=== PATIENT | male | born 1960 | race African-American/Black ===

== ENCOUNTER 2023-01-20 14:16 | Inpatient (IN) | payer OTHER ==
[2023-01-20 17:00] VITALS: BMI 21.9
[2023-01-20] MEDS ORDERED: NALOXONE HCL 0.4 MG/ML VIAL IM PRN (18:35)
[2023-01-20] MEDS ORDERED: BENZOCAINE/MENTHOL (CHLORASEPTIC ) LOZENGE MM PRN (18:35)
[2023-01-20] MEDS ORDERED: LOPERAMIDE HCL 2 MG CAPSULE PO PRN (18:35)
[2023-01-20] MEDS ORDERED: BISMUTH SUBSALICYLATE 524 MG/30 ML PO PRN (18:35)
[2023-01-20] MEDS ORDERED: hydrOXYzine PAMOATE 25 MG CAPSULE (FP) PO PRN (18:35)
[2023-01-20] MEDS ORDERED: LORazepam 1 MG TABLET PO PRN (18:35)
[2023-01-20] MEDS ORDERED: POLYETHYLENE GLYCOL (HEALTHYLAX) 3350 17 GM PACKET PO PRN (18:35)
[2023-01-20] MEDS ORDERED: NALOXONE HCL (KLOXXADO) 8 MG SPRAY NS PRN (18:35)
[2023-01-20] MEDS ORDERED: guaiFENesin 600 MG TABLET.ER (FP) PO PRN (18:35)
[2023-01-20] MEDS ORDERED: IBUPROFEN 600 MG TABLET (FP) PO PRN (18:35)
[2023-01-20] MEDS ORDERED: MAGNESIUM HYDROX 2400MG/30ML ORAL SUSPENSION 30 ML CUP PO PRN (18:35)
[2023-01-20] MEDS ORDERED: BENZONATATE 200 MG CAPSULE PO PRN (18:35)
[2023-01-20] MEDS ORDERED: IBUPROFEN 400 MG TABLET (FP) PO PRN (18:35)
[2023-01-20] MEDS ORDERED: DICYCLOMINE HCL 10 MG CAPSULE PO PRN (18:35)
[2023-01-20] MEDS ORDERED: ACETAMINOPHEN 325 MG TABLET (FP) PO PRN (18:35)
[2023-01-20] MEDS ORDERED: ONDANSETRON *ODT* 4 MG TABLET SL PRN (18:35)
[2023-01-20] MEDS ORDERED: MAG HYDROX/AL HYDROX/SIMETH 30 ML UNIT-DOSE CUP PO PRN (18:35)
[2023-01-20] MEDS: LORazepam 2 MG TABLET PO SCH (22:18)
[2023-01-20] MEDS: MELATONIN 5 MG TABLETS PO SCH (22:18)
[2023-01-20] MEDS: THIAMINE HCL 100 MG TABLET (FP) PO SCH (22:18)
[2023-01-20] MEDS: PRENATAL VITAMINS W/ FOLIC ACID TABLET (FP) PO SCH (22:19)
[2023-01-21] MEDS: LORazepam 2 MG TABLET PO SCH ×4 (05:49→22:34)
[2023-01-21] MEDS: PRENATAL VITAMINS W/ FOLIC ACID TABLET (FP) PO SCH (10:03)
[2023-01-21 10:55] LABS: CHLORIDE 108 mmol/L (98-107); POTASSIUM 3.8 mmol/L (3.5-5.1); SODIUM 140 mmol/L (136-145)
[2023-01-21 11:14] LABS: CALCIUM 8.5 mg/dL (8.5-10.1)
[2023-01-21 11:15] LABS: ALBUMIN 2.8 g/dl (3.4-5.0); ANION GAP 7 mmol/L (4-13); BLOOD UREA NITROGEN 16.2 mg/dL (7-18); CO2 25 mmol/L (21-32); GLUCOSE,RANDOM 105 mg/dL (74-106)
[2023-01-21 11:18] LABS: SGOT/AST 47 U/L (15-37); SGPT/ALT 68 U/L (13-61)
[2023-01-21 11:20] LABS: TOT PROT 5.8 g/dl (6.4-8.2)
[2023-01-21 11:21] LABS: ALK PHOS 90 U/L (45-117)
[2023-01-21] MEDS: LACTULOSE 20 GM/30 ML UDC (FOR ORAL USE ONLY) PO SCH ×2 (14:35→22:35)
[2023-01-21] MEDS: MELATONIN 5 MG TABLETS PO SCH (22:34)
[2023-01-21] MEDS: THIAMINE HCL 100 MG TABLET (FP) PO SCH (22:34)
[2023-01-22] MEDS: LORazepam 1 MG TABLET PO SCH ×4 (05:30→22:12)
[2023-01-22] MEDS: LACTULOSE 20 GM/30 ML UDC (FOR ORAL USE ONLY) PO SCH ×3 (05:30→22:12)
[2023-01-22] MEDS: PRENATAL VITAMINS W/ FOLIC ACID TABLET (FP) PO SCH (10:06)
[2023-01-22 10:33] LABS: HEMATOCRIT 40.3 % (35.4-49); MCH 28.9 pg (25.7-33.7); MCHC 32.2 g/dl (32.0-35.9); MEAN CELL VOLUME 89.7 fl (80-96); MEAN PLT VOLUME 10.3 fl (7.5-11.1); PLATELET COUNT 145 10^3/uL (134-434); RDW 14.2 % (11.9-15.9); WHITE BLOOD COUNT 4.3 K/mm3 (4.0-10.0)
[2023-01-22] MEDS: METHOCARBAMOL 500 MG TABLET PO PRN (17:10)
[2023-01-22] MEDS: NICOTINE POLACRILEX 2 MG GUM BUC PRN ×2 (18:47→21:20)
[2023-01-22] MEDS: MELATONIN 5 MG TABLETS PO SCH (22:12)
[2023-01-22] MEDS: THIAMINE HCL 100 MG TABLET (FP) PO SCH (22:12)
[2023-01-23] MEDS ORDERED: LORazepam 0.5 MG TABLET PO PRN
[2023-01-23] MEDS: LORazepam 0.5 MG TABLET PO SCH ×4 (05:07→22:06)
[2023-01-23] MEDS: LACTULOSE 20 GM/30 ML UDC (FOR ORAL USE ONLY) PO SCH ×3 (06:08→22:03)
[2023-01-23] MEDS: NICOTINE POLACRILEX 2 MG GUM BUC PRN ×5 (06:12→22:25)
[2023-01-23] MEDS: PRENATAL VITAMINS W/ FOLIC ACID TABLET (FP) PO SCH (10:29)
[2023-01-23] MEDS ORDERED: LISINOPRIL 5 MG TABLET PO SCH (11:30)
[2023-01-23] MEDS ORDERED: LISINOPRIL 5 MG TABLET PO ONE (14:00)
[2023-01-23] MEDS: THIAMINE HCL 100 MG TABLET (FP) PO SCH (22:03)
[2023-01-23] MEDS: MELATONIN 5 MG TABLETS PO SCH (22:03)
[2023-01-23] MEDS: METHOCARBAMOL 500 MG TABLET PO PRN (22:03)
[2023-01-24] MEDS ORDERED: LORazepam 0.5 MG TABLET PO ONE (05:00)
[2023-01-24] MEDS: LACTULOSE 20 GM/30 ML UDC (FOR ORAL USE ONLY) PO SCH ×2 (06:25→13:47)
[2023-01-24] MEDS: NICOTINE POLACRILEX 2 MG GUM BUC PRN ×2 (06:27→10:26)
[2023-01-24 07:37] VITALS: BP 159/100; PULSE 66; RESP 18; TEMP 97
[2023-01-24] MEDS: PRENATAL VITAMINS W/ FOLIC ACID TABLET (FP) PO SCH (09:41)
[2023-01-24] MEDS ORDERED: LISINOPRIL 10 MG TABLET PO SCH (10:00)
== END 2023-01-24 11:58 | disposition other institution (70) | DRG 774 ==
LOC: YASAS 14:16 → Y6N 20:32
PROVIDERS: ADMIT Allergy & Immunology; ATTEND Surgery
PROC: HZ2ZZZZ Detoxification Services for Substance Abuse Treatment (ICD-10-PCS; principal; 2023-01-20)
DX: F10.230 Alcohol dependence with withdrawal, uncomplicated (principal); F14.20 Cocaine dependence, uncomplicated; F17.210 Nicotine dependence, cigarettes, uncomplicated; I10 Essential (primary) hypertension; E72.20 Disorder of urea cycle metabolism, unspecified; B18.1 Chronic viral hepatitis B without delta-agent
CPT/HCPCS: 36415; 71046-TC-FY; 80053; 80307; 82140; 85027; 86780; 87635; 93005; 93010

== ENCOUNTER 2023-01-24 12:00 | Inpatient (IN) | payer OTHER ==
[2023-01-24] MEDS ORDERED: FLU VACCINE (FLULAVAL) PF 60 MCG/0.5 ML SYRINGE 2023-2024 IM ONE (12:16)
[2023-01-24] MEDS ORDERED: PNEUMOC 20-VAL CONJ-DIP CRM/PF 0.5 ML SYRINGE IM ONE (12:16)
[2023-01-24] MEDS ORDERED: IBUPROFEN 400 MG TABLET (FP) PO PRN (12:46)
[2023-01-24] MEDS ORDERED: ACETAMINOPHEN 325 MG TABLET (FP) PO PRN (12:46)
[2023-01-24] MEDS ORDERED: NALOXONE HCL 0.4 MG/ML VIAL IVPUSH PRN (12:46)
[2023-01-24] MEDS ORDERED: NALOXONE HCL (KLOXXADO) 8 MG SPRAY NS PRN (12:46)
[2023-01-24] MEDS ORDERED: IBUPROFEN 600 MG TABLET (FP) PO PRN (12:46)
[2023-01-24] MEDS ORDERED: BENZONATATE 200 MG CAPSULE PO PRN (12:46)
[2023-01-24] MEDS ORDERED: NICOTINE 14 MG/24 HOURS TOPICAL PATCH TD PRN (12:46)
[2023-01-24] MEDS ORDERED: LOPERAMIDE HCL 2 MG CAPSULE PO PRN (12:46)
[2023-01-24] MEDS ORDERED: COLLOIDAL OATMEAL 1 BAR EACH TP PRN (12:46)
[2023-01-24] MEDS ORDERED: AMMONIUM LACTATE 12% LOTION 225 GM BOTTLE TP PRN (12:46)
[2023-01-24] MEDS ORDERED: BENZOCAINE/MENTHOL (CHLORASEPTIC ) LOZENGE MM PRN (12:46)
[2023-01-24] MEDS ORDERED: guaiFENesin 600 MG TABLET.ER (FP) PO PRN (12:46)
[2023-01-24] MEDS ORDERED: BACLOFEN 10 MG TABLET (FP) PO PRN (12:46)
[2023-01-24] MEDS ORDERED: MAGNESIUM HYDROX 2400MG/30ML ORAL SUSPENSION 30 ML CUP PO PRN (12:46)
[2023-01-24] MEDS ORDERED: POLYETHYLENE GLYCOL (HEALTHYLAX) 3350 17 GM PACKET PO PRN (12:46)
[2023-01-24] MEDS ORDERED: MAG HYDROX/AL HYDROX/SIMETH 30 ML UNIT-DOSE CUP PO PRN (12:46)
[2023-01-24] MEDS: LACTULOSE 20 GM/30 ML UDC (FOR ORAL USE ONLY) PO SCH ×2 (13:49→21:04)
[2023-01-24] MEDS ORDERED: PNEUMOCOCCAL 23 VACCINE 0.5 ML VIAL IM ONE (14:04)
[2023-01-24] MEDS: NICOTINE POLACRILEX 4 MG GUM BUC PRN ×2 (16:02→21:05)
[2023-01-24] MEDS: THIAMINE HCL 100 MG TABLET (FP) PO SCH (21:04)
[2023-01-24] MEDS: MELATONIN 5 MG TABLETS PO SCH (21:04)
[2023-01-25] MEDS: LACTULOSE 20 GM/30 ML UDC (FOR ORAL USE ONLY) PO SCH ×3 (06:26→21:21)
[2023-01-25] MEDS: hydrOXYzine PAMOATE 25 MG CAPSULE (FP) PO PRN ×2 (06:26→21:21)
[2023-01-25] MEDS: NICOTINE POLACRILEX 4 MG GUM BUC PRN ×4 (06:28→21:21)
[2023-01-25] MEDS ORDERED: LISINOPRIL 10 MG TABLET PO SCH (10:00)
[2023-01-25] MEDS: PRENATAL VITAMINS W/ FOLIC ACID TABLET (FP) PO SCH (10:14)
[2023-01-25 16:29] LABS: HIV INTERPRETATION NEGATIVE (NEGATIVE)
[2023-01-25] MEDS: THIAMINE HCL 100 MG TABLET (FP) PO SCH (21:20)
[2023-01-25] MEDS: MELATONIN 5 MG TABLETS PO SCH (21:21)
[2023-01-26] MEDS: LACTULOSE 20 GM/30 ML UDC (FOR ORAL USE ONLY) PO SCH ×3 (06:14→21:03)
[2023-01-26] MEDS: NICOTINE POLACRILEX 4 MG GUM BUC PRN ×4 (06:15→21:04)
[2023-01-26] MEDS: PRENATAL VITAMINS W/ FOLIC ACID TABLET (FP) PO SCH (09:52)
[2023-01-26] MEDS ORDERED: amLODIPine BESYLATE 5 MG TABLET (FP) PO SCH (10:00)
[2023-01-26] MEDS ORDERED: amLODIPine BESYLATE 5 MG TABLET (FP) PO ONE (12:36)
[2023-01-26] MEDS: THIAMINE HCL 100 MG TABLET (FP) PO SCH (21:03)
[2023-01-26] MEDS: MELATONIN 5 MG TABLETS PO SCH (21:03)
[2023-01-26] MEDS: hydrOXYzine PAMOATE 25 MG CAPSULE (FP) PO PRN (21:03)
[2023-01-27] MEDS: LACTULOSE 20 GM/30 ML UDC (FOR ORAL USE ONLY) PO SCH ×3 (06:22→21:03)
[2023-01-27] MEDS: NICOTINE POLACRILEX 4 MG GUM BUC PRN ×6 (06:23→23:09)
[2023-01-27] MEDS: hydrOXYzine PAMOATE 25 MG CAPSULE (FP) PO PRN ×2 (06:23→21:05)
[2023-01-27] MEDS: LISINOPRIL 5 MG TABLET PO SCH (09:54)
[2023-01-27] MEDS: PRENATAL VITAMINS W/ FOLIC ACID TABLET (FP) PO SCH (09:54)
[2023-01-27] MEDS: amLODIPine BESYLATE 10 MG TABLET (FP) PO SCH (09:54)
[2023-01-27] MEDS: MELATONIN 5 MG TABLETS PO SCH (21:03)
[2023-01-27] MEDS: THIAMINE HCL 100 MG TABLET (FP) PO SCH (21:03)
[2023-01-28] MEDS: LACTULOSE 20 GM/30 ML UDC (FOR ORAL USE ONLY) PO SCH ×3 (06:00→21:19)
[2023-01-28] MEDS: hydrOXYzine PAMOATE 25 MG CAPSULE (FP) PO PRN ×2 (06:00→21:20)
[2023-01-28] MEDS: NICOTINE POLACRILEX 4 MG GUM BUC PRN ×4 (06:01→16:39)
[2023-01-28] MEDS: LISINOPRIL 5 MG TABLET PO SCH (10:13)
[2023-01-28] MEDS: PRENATAL VITAMINS W/ FOLIC ACID TABLET (FP) PO SCH (10:13)
[2023-01-28] MEDS: amLODIPine BESYLATE 10 MG TABLET (FP) PO SCH (10:13)
[2023-01-28] MEDS: MELATONIN 5 MG TABLETS PO SCH (21:18)
[2023-01-28] MEDS: THIAMINE HCL 100 MG TABLET (FP) PO SCH (21:19)
[2023-01-29] MEDS: LACTULOSE 20 GM/30 ML UDC (FOR ORAL USE ONLY) PO SCH ×3 (06:20→21:24)
[2023-01-29] MEDS: NICOTINE POLACRILEX 4 MG GUM BUC PRN ×5 (06:20→21:25)
[2023-01-29] MEDS: PRENATAL VITAMINS W/ FOLIC ACID TABLET (FP) PO SCH (10:25)
[2023-01-29] MEDS: LISINOPRIL 5 MG TABLET PO SCH (10:25)
[2023-01-29] MEDS: amLODIPine BESYLATE 10 MG TABLET (FP) PO SCH (10:25)
[2023-01-29] MEDS: hydrOXYzine PAMOATE 25 MG CAPSULE (FP) PO PRN (21:24)
[2023-01-29] MEDS: THIAMINE HCL 100 MG TABLET (FP) PO SCH (21:24)
[2023-01-29] MEDS: MELATONIN 5 MG TABLETS PO SCH (21:24)
[2023-01-30] MEDS: LACTULOSE 20 GM/30 ML UDC (FOR ORAL USE ONLY) PO SCH ×3 (06:04→21:08)
[2023-01-30] MEDS: hydrOXYzine PAMOATE 25 MG CAPSULE (FP) PO PRN ×2 (06:05→21:08)
[2023-01-30] MEDS: NICOTINE POLACRILEX 4 MG GUM BUC PRN ×4 (08:34→21:08)
[2023-01-30] MEDS: PRENATAL VITAMINS W/ FOLIC ACID TABLET (FP) PO SCH (09:32)
[2023-01-30] MEDS: LISINOPRIL 5 MG TABLET PO SCH (09:32)
[2023-01-30] MEDS: amLODIPine BESYLATE 10 MG TABLET (FP) PO SCH (09:33)
[2023-01-30] MEDS: MELATONIN 5 MG TABLETS PO SCH (21:08)
[2023-01-30] MEDS: THIAMINE HCL 100 MG TABLET (FP) PO SCH (21:08)
[2023-01-31] MEDS: LACTULOSE 20 GM/30 ML UDC (FOR ORAL USE ONLY) PO SCH ×3 (06:19→21:07)
[2023-01-31] MEDS: NICOTINE POLACRILEX 4 MG GUM BUC PRN ×5 (06:20→20:11)
[2023-01-31] MEDS: PRENATAL VITAMINS W/ FOLIC ACID TABLET (FP) PO SCH (10:00)
[2023-01-31] MEDS: LISINOPRIL 5 MG TABLET PO SCH (10:00)
[2023-01-31] MEDS: amLODIPine BESYLATE 10 MG TABLET (FP) PO SCH (10:00)
[2023-01-31] MEDS: MELATONIN 5 MG TABLETS PO SCH (21:07)
[2023-01-31] MEDS: THIAMINE HCL 100 MG TABLET (FP) PO SCH (21:08)
[2023-02-01] MEDS: LACTULOSE 20 GM/30 ML UDC (FOR ORAL USE ONLY) PO SCH ×2 (06:22→13:38)
[2023-02-01] MEDS: NICOTINE POLACRILEX 4 MG GUM BUC PRN ×3 (06:22→15:48)
[2023-02-01] MEDS: PRENATAL VITAMINS W/ FOLIC ACID TABLET (FP) PO SCH (09:39)
[2023-02-01] MEDS: LISINOPRIL 5 MG TABLET PO SCH (09:39)
[2023-02-01] MEDS: amLODIPine BESYLATE 10 MG TABLET (FP) PO SCH (09:39)
[2023-02-01] MEDS: MELATONIN 5 MG TABLETS PO SCH (21:10)
[2023-02-01] MEDS: THIAMINE HCL 100 MG TABLET (FP) PO SCH (21:10)
[2023-02-01] MEDS: hydrOXYzine PAMOATE 25 MG CAPSULE (FP) PO PRN (21:11)
[2023-02-02] MEDS: NICOTINE POLACRILEX 4 MG GUM BUC PRN ×4 (06:37→19:40)
[2023-02-02] MEDS: LISINOPRIL 5 MG TABLET PO SCH (10:24)
[2023-02-02] MEDS: PRENATAL VITAMINS W/ FOLIC ACID TABLET (FP) PO SCH (10:24)
[2023-02-02] MEDS: amLODIPine BESYLATE 10 MG TABLET (FP) PO SCH (10:24)
[2023-02-02] MEDS: MELATONIN 5 MG TABLETS PO SCH (21:02)
[2023-02-02] MEDS: hydrOXYzine PAMOATE 25 MG CAPSULE (FP) PO PRN (21:02)
[2023-02-02] MEDS: THIAMINE HCL 100 MG TABLET (FP) PO SCH (21:02)
[2023-02-03] MEDS: NICOTINE POLACRILEX 4 MG GUM BUC PRN ×4 (06:17→21:27)
[2023-02-03] MEDS: amLODIPine BESYLATE 10 MG TABLET (FP) PO SCH (09:52)
[2023-02-03] MEDS: LISINOPRIL 5 MG TABLET PO SCH (09:52)
[2023-02-03] MEDS: PRENATAL VITAMINS W/ FOLIC ACID TABLET (FP) PO SCH (09:52)
[2023-02-03] MEDS: THIAMINE HCL 100 MG TABLET (FP) PO SCH (21:27)
[2023-02-03] MEDS: hydrOXYzine PAMOATE 25 MG CAPSULE (FP) PO PRN (21:27)
[2023-02-03] MEDS: MELATONIN 5 MG TABLETS PO SCH (21:27)
[2023-02-04] MEDS: amLODIPine BESYLATE 10 MG TABLET (FP) PO SCH (10:02)
[2023-02-04] MEDS: LISINOPRIL 5 MG TABLET PO SCH (10:02)
[2023-02-04] MEDS: PRENATAL VITAMINS W/ FOLIC ACID TABLET (FP) PO SCH (10:02)
[2023-02-04] MEDS: NICOTINE POLACRILEX 4 MG GUM BUC PRN ×4 (10:03→19:42)
[2023-02-04] MEDS: MELATONIN 5 MG TABLETS PO SCH (21:04)
[2023-02-04] MEDS: THIAMINE HCL 100 MG TABLET (FP) PO SCH (21:04)
[2023-02-04] MEDS: hydrOXYzine PAMOATE 25 MG CAPSULE (FP) PO PRN (21:04)
[2023-02-05] MEDS: NICOTINE POLACRILEX 4 MG GUM BUC PRN ×5 (06:29→22:42)
[2023-02-05] MEDS: amLODIPine BESYLATE 10 MG TABLET (FP) PO SCH (09:52)
[2023-02-05] MEDS: PRENATAL VITAMINS W/ FOLIC ACID TABLET (FP) PO SCH (09:52)
[2023-02-05] MEDS: LISINOPRIL 5 MG TABLET PO SCH (09:52)
[2023-02-05] MEDS: hydrOXYzine PAMOATE 25 MG CAPSULE (FP) PO PRN (21:40)
[2023-02-05] MEDS: MELATONIN 5 MG TABLETS PO SCH (21:41)
[2023-02-05] MEDS: THIAMINE HCL 100 MG TABLET (FP) PO SCH (21:41)
[2023-02-06] MEDS: NICOTINE POLACRILEX 4 MG GUM BUC PRN ×5 (06:45→21:58)
[2023-02-06] MEDS: PRENATAL VITAMINS W/ FOLIC ACID TABLET (FP) PO SCH (09:52)
[2023-02-06] MEDS: amLODIPine BESYLATE 10 MG TABLET (FP) PO SCH (09:53)
[2023-02-06] MEDS: LISINOPRIL 5 MG TABLET PO SCH (09:53)
[2023-02-06] MEDS: hydrOXYzine PAMOATE 25 MG CAPSULE (FP) PO PRN (21:26)
[2023-02-06] MEDS: THIAMINE HCL 100 MG TABLET (FP) PO SCH (21:26)
[2023-02-06] MEDS: MELATONIN 5 MG TABLETS PO SCH (21:26)
[2023-02-07] MEDS: NICOTINE POLACRILEX 4 MG GUM BUC PRN ×4 (08:38→21:22)
[2023-02-07] MEDS: PRENATAL VITAMINS W/ FOLIC ACID TABLET (FP) PO SCH (09:53)
[2023-02-07] MEDS: LISINOPRIL 5 MG TABLET PO SCH (09:54)
[2023-02-07] MEDS: amLODIPine BESYLATE 10 MG TABLET (FP) PO SCH (09:54)
[2023-02-07] MEDS: hydrOXYzine PAMOATE 25 MG CAPSULE (FP) PO PRN (21:22)
[2023-02-07] MEDS: THIAMINE HCL 100 MG TABLET (FP) PO SCH (21:22)
[2023-02-07] MEDS: MELATONIN 5 MG TABLETS PO SCH (21:22)
[2023-02-08] MEDS: NICOTINE POLACRILEX 4 MG GUM BUC PRN ×3 (10:09→21:03)
[2023-02-08] MEDS: PRENATAL VITAMINS W/ FOLIC ACID TABLET (FP) PO SCH (10:09)
[2023-02-08] MEDS: amLODIPine BESYLATE 10 MG TABLET (FP) PO SCH (10:09)
[2023-02-08] MEDS: LISINOPRIL 5 MG TABLET PO SCH (10:09)
[2023-02-08] MEDS: MELATONIN 5 MG TABLETS PO SCH (21:02)
[2023-02-08] MEDS: hydrOXYzine PAMOATE 25 MG CAPSULE (FP) PO PRN (21:02)
[2023-02-08] MEDS: THIAMINE HCL 100 MG TABLET (FP) PO SCH (21:02)
[2023-02-09] MEDS: LISINOPRIL 5 MG TABLET PO SCH (10:36)
[2023-02-09] MEDS: PRENATAL VITAMINS W/ FOLIC ACID TABLET (FP) PO SCH (10:36)
[2023-02-09] MEDS: amLODIPine BESYLATE 10 MG TABLET (FP) PO SCH (10:36)
[2023-02-09] MEDS: NICOTINE POLACRILEX 4 MG GUM BUC PRN ×2 (10:37→15:37)
[2023-02-09] MEDS: THIAMINE HCL 100 MG TABLET (FP) PO SCH (21:26)
[2023-02-09] MEDS: MELATONIN 5 MG TABLETS PO SCH (21:26)
[2023-02-09] MEDS: hydrOXYzine PAMOATE 25 MG CAPSULE (FP) PO PRN (21:26)
[2023-02-10] MEDS: NICOTINE POLACRILEX 4 MG GUM BUC PRN ×3 (06:18→16:20)
[2023-02-10] MEDS: PRENATAL VITAMINS W/ FOLIC ACID TABLET (FP) PO SCH (09:51)
[2023-02-10] MEDS: amLODIPine BESYLATE 10 MG TABLET (FP) PO SCH (09:52)
[2023-02-10] MEDS: LISINOPRIL 5 MG TABLET PO SCH (09:52)
[2023-02-10] MEDS: hydrOXYzine PAMOATE 25 MG CAPSULE (FP) PO PRN (21:03)
[2023-02-10] MEDS: MELATONIN 5 MG TABLETS PO SCH (21:03)
[2023-02-10] MEDS: THIAMINE HCL 100 MG TABLET (FP) PO SCH (21:03)
[2023-02-11] MEDS: amLODIPine BESYLATE 10 MG TABLET (FP) PO SCH (09:56)
[2023-02-11] MEDS: LISINOPRIL 5 MG TABLET PO SCH (09:56)
[2023-02-11] MEDS: PRENATAL VITAMINS W/ FOLIC ACID TABLET (FP) PO SCH (09:56)
[2023-02-11] MEDS: TOLNAFTATE 1% CREAM 15 GM TUBE TP SCH ×2 (09:58→21:31)
[2023-02-11] MEDS: POVIDONE-IODINE 10% SOLN 118 ML BOTTLE TP SCH (10:24)
[2023-02-11] MEDS: NICOTINE POLACRILEX 4 MG GUM BUC PRN ×2 (16:32→21:31)
[2023-02-11] MEDS: MELATONIN 5 MG TABLETS PO SCH (21:29)
[2023-02-11] MEDS: THIAMINE HCL 100 MG TABLET (FP) PO SCH (21:29)
[2023-02-11] MEDS: hydrOXYzine PAMOATE 25 MG CAPSULE (FP) PO PRN (21:29)
[2023-02-12] MEDS: TOLNAFTATE 1% CREAM 15 GM TUBE TP SCH ×2 (10:11→21:27)
[2023-02-12] MEDS: POVIDONE-IODINE 10% SOLN 118 ML BOTTLE TP SCH (10:12)
[2023-02-12] MEDS: LISINOPRIL 5 MG TABLET PO SCH (10:12)
[2023-02-12] MEDS: amLODIPine BESYLATE 10 MG TABLET (FP) PO SCH (10:12)
[2023-02-12] MEDS: PRENATAL VITAMINS W/ FOLIC ACID TABLET (FP) PO SCH (10:12)
[2023-02-12] MEDS: NICOTINE POLACRILEX 4 MG GUM BUC PRN ×2 (10:14→19:55)
[2023-02-12] MEDS: hydrOXYzine PAMOATE 25 MG CAPSULE (FP) PO PRN (21:26)
[2023-02-12] MEDS: MELATONIN 5 MG TABLETS PO SCH (21:26)
[2023-02-12] MEDS: THIAMINE HCL 100 MG TABLET (FP) PO SCH (21:26)
[2023-02-13] MEDS: amLODIPine BESYLATE 10 MG TABLET (FP) PO SCH (10:18)
[2023-02-13] MEDS: LISINOPRIL 5 MG TABLET PO SCH (10:18)
[2023-02-13] MEDS: TOLNAFTATE 1% CREAM 15 GM TUBE TP SCH ×2 (10:19→21:02)
[2023-02-13] MEDS: PRENATAL VITAMINS W/ FOLIC ACID TABLET (FP) PO SCH (10:19)
[2023-02-13] MEDS: POVIDONE-IODINE 10% SOLN 118 ML BOTTLE TP SCH (10:19)
[2023-02-13] MEDS: NICOTINE POLACRILEX 4 MG GUM BUC PRN ×2 (10:20→16:37)
[2023-02-13] MEDS: MELATONIN 5 MG TABLETS PO SCH (21:02)
[2023-02-13] MEDS: THIAMINE HCL 100 MG TABLET (FP) PO SCH (21:02)
[2023-02-13] MEDS: hydrOXYzine PAMOATE 25 MG CAPSULE (FP) PO PRN (21:02)
[2023-02-14] MEDS: NICOTINE POLACRILEX 4 MG GUM BUC PRN ×4 (07:07→21:33)
[2023-02-14] MEDS: amLODIPine BESYLATE 10 MG TABLET (FP) PO SCH (10:05)
[2023-02-14] MEDS: PRENATAL VITAMINS W/ FOLIC ACID TABLET (FP) PO SCH (10:05)
[2023-02-14] MEDS: LISINOPRIL 5 MG TABLET PO SCH (10:05)
[2023-02-14] MEDS: TOLNAFTATE 1% CREAM 15 GM TUBE TP SCH ×2 (10:06→21:32)
[2023-02-14] MEDS: POVIDONE-IODINE 10% SOLN 118 ML BOTTLE TP SCH (10:45)
[2023-02-14] MEDS: MELATONIN 5 MG TABLETS PO SCH (21:30)
[2023-02-14] MEDS: hydrOXYzine PAMOATE 25 MG CAPSULE (FP) PO PRN (21:30)
[2023-02-14] MEDS: THIAMINE HCL 100 MG TABLET (FP) PO SCH (21:30)
[2023-02-14] MEDS: BACLOFEN 10 MG TABLET (FP) PO PRN (21:31)
[2023-02-15] MEDS: LISINOPRIL 5 MG TABLET PO SCH (09:58)
[2023-02-15] MEDS: PRENATAL VITAMINS W/ FOLIC ACID TABLET (FP) PO SCH (09:58)
[2023-02-15] MEDS: TOLNAFTATE 1% CREAM 15 GM TUBE TP SCH ×2 (09:58→21:07)
[2023-02-15] MEDS: amLODIPine BESYLATE 10 MG TABLET (FP) PO SCH (09:58)
[2023-02-15] MEDS: NICOTINE POLACRILEX 4 MG GUM BUC PRN ×2 (09:59→12:44)
[2023-02-15] MEDS: THIAMINE HCL 100 MG TABLET (FP) PO SCH (21:05)
[2023-02-15] MEDS: MELATONIN 5 MG TABLETS PO SCH (21:05)
[2023-02-15] MEDS: hydrOXYzine PAMOATE 25 MG CAPSULE (FP) PO PRN (21:05)
[2023-02-15] MEDS: BACLOFEN 10 MG TABLET (FP) PO PRN (21:06)
[2023-02-16 07:19] VITALS: RESP 18
[2023-02-16] MEDS: PRENATAL VITAMINS W/ FOLIC ACID TABLET (FP) PO SCH (10:06)
[2023-02-16] MEDS: LISINOPRIL 5 MG TABLET PO SCH (10:06)
[2023-02-16] MEDS: amLODIPine BESYLATE 10 MG TABLET (FP) PO SCH (10:06)
[2023-02-16] MEDS: TOLNAFTATE 1% CREAM 15 GM TUBE TP SCH ×2 (10:07→21:07)
[2023-02-16] MEDS: NICOTINE POLACRILEX 4 MG GUM BUC PRN ×4 (10:07→21:07)
[2023-02-16] MEDS: MELATONIN 5 MG TABLETS PO SCH (21:06)
[2023-02-16] MEDS: hydrOXYzine PAMOATE 25 MG CAPSULE (FP) PO PRN (21:06)
[2023-02-16] MEDS: THIAMINE HCL 100 MG TABLET (FP) PO SCH (21:06)
[2023-02-16] MEDS: BACLOFEN 10 MG TABLET (FP) PO PRN (21:07)
[2023-02-17] MEDS: NICOTINE POLACRILEX 4 MG GUM BUC PRN ×4 (06:42→15:48)
[2023-02-17] MEDS: LISINOPRIL 5 MG TABLET PO SCH (10:29)
[2023-02-17] MEDS: amLODIPine BESYLATE 10 MG TABLET (FP) PO SCH (10:29)
[2023-02-17] MEDS: PRENATAL VITAMINS W/ FOLIC ACID TABLET (FP) PO SCH (10:29)
[2023-02-17] MEDS: TOLNAFTATE 1% CREAM 15 GM TUBE TP SCH ×2 (10:30→21:01)
[2023-02-17] MEDS: BACLOFEN 10 MG TABLET (FP) PO PRN (21:01)
[2023-02-17] MEDS: hydrOXYzine PAMOATE 25 MG CAPSULE (FP) PO PRN (21:01)
[2023-02-17] MEDS: MELATONIN 5 MG TABLETS PO SCH (21:01)
[2023-02-17] MEDS: THIAMINE HCL 100 MG TABLET (FP) PO SCH (21:01)
[2023-02-18 07:27] VITALS: TEMP 97
[2023-02-18] MEDS: TOLNAFTATE 1% CREAM 15 GM TUBE TP SCH (09:05)
[2023-02-18] MEDS: amLODIPine BESYLATE 10 MG TABLET (FP) PO SCH (09:05)
[2023-02-18] MEDS: LISINOPRIL 5 MG TABLET PO SCH (09:05)
[2023-02-18] MEDS: PRENATAL VITAMINS W/ FOLIC ACID TABLET (FP) PO SCH (09:05)
[2023-02-18] MEDS: NICOTINE POLACRILEX 4 MG GUM BUC PRN (09:06)
[2023-02-18 09:42] VITALS: BP 140/70; PULSE 79
== END 2023-02-18 09:14 | disposition home or self-care (01) | DRG 772 ==
LOC: YASAS 12:00 → Y3W 12:01
PROVIDERS: ADMIT Allergy & Immunology; ATTEND Psychiatry & Neurology Pain Medicine
PROC: HZ42ZZZ Group Counseling for Substance Abuse Treatment, Cognitive-Behavioral (ICD-10-PCS; principal; 2023-01-24)
DX: F10.20 Alcohol dependence, uncomplicated (principal); F14.20 Cocaine dependence, uncomplicated; F17.210 Nicotine dependence, cigarettes, uncomplicated; G62.9 Polyneuropathy, unspecified; I10 Essential (primary) hypertension; B18.1 Chronic viral hepatitis B without delta-agent; B35.3 Tinea pedis; M54.40 Lumbago with sciatica, unspecified side; G89.29 Other chronic pain; R79.89 Other specified abnormal findings of blood chemistry
CPT/HCPCS: 36415; 82140; 86803; 87389; 90677; 90686; G0008; J0475

== ENCOUNTER 2023-10-04 09:32 | Inpatient (IN) | payer OTHER ==
[2023-10-04 10:40] VITALS: BMI 23.5
[2023-10-04] MEDS ORDERED: guaiFENesin 600 MG TABLET.ER (FP) PO PRN (12:31)
[2023-10-04] MEDS ORDERED: BENZONATATE 200 MG CAPSULE PO PRN (12:31)
[2023-10-04] MEDS ORDERED: hydrOXYzine PAMOATE 25 MG CAPSULE (FP) PO PRN (12:31)
[2023-10-04] MEDS ORDERED: LOPERAMIDE HCL 2 MG CAPSULE PO PRN (12:31)
[2023-10-04] MEDS ORDERED: ACETAMINOPHEN 325 MG TABLET (FP) PO PRN (12:31)
[2023-10-04] MEDS ORDERED: NALOXONE (NARCAN) HCL 4 MG/0.1 ML SPRAY NS PRN (12:31)
[2023-10-04] MEDS ORDERED: NALOXONE HCL 0.4 MG/ML VIAL IM PRN (12:31)
[2023-10-04] MEDS: MELATONIN 5 MG TABLETS PO SCH (21:12)
[2023-10-04] MEDS: THIAMINE 100 MG TABLET PO SCH (21:12)
[2023-10-05] MEDS: PRENATAL VITAMINS W/ FOLIC ACID TABLET (FP) PO SCH (09:51)
[2023-10-05] MEDS: NICOTINE 21 MG/24 HOURS TOPICAL PATCH TD SCH (09:51)
[2023-10-05] MEDS: NICOTINE POLACRILEX 2 MG GUM BUC PRN (09:52)
[2023-10-05] MEDS: amLODIPine BESYLATE 10 MG TABLET (FP) PO SCH (10:25)
[2023-10-05 12:06] LABS: HEMATOCRIT 32.7 % (35.4-49); HEMOGLOBIN 10.4 GM/dL (11.7-16.9); MCH 27.8 pg (25.7-33.7); MCHC 31.9 g/dl (32.0-35.9); MEAN CELL VOLUME 87.1 fl (80-96); MEAN PLT VOLUME 8.8 fl (7.5-11.1); PLATELET COUNT 326 10^3/uL (134-434); RBC 3.75 M/mm3 (4.00-5.60); RDW 16.3 % (11.9-15.9); WHITE BLOOD COUNT 5.5 K/mm3 (4.0-10.0)
[2023-10-05 12:07] LABS: CHLORIDE 109 mmol/L (98-107); POTASSIUM 3.9 mmol/L (3.5-5.1); SODIUM 144 mmol/L (136-145)
[2023-10-05 12:23] LABS: ALBUMIN 2.4 g/dl (3.4-5.0); ANION GAP 5 mmol/L (4-13); CALCIUM 8.7 mg/dL (8.5-10.1); CO2 29 mmol/L (21-32)
[2023-10-05 12:24] LABS: GLUCOSE,RANDOM 89 mg/dL (74-106)
[2023-10-05 12:26] LABS: BLOOD UREA NITROGEN 11.4 mg/dL (7-18); CREATININE 0.8 mg/dL (0.55-1.3); SGPT/ALT 46 U/L (13-61)
[2023-10-05 12:27] LABS: BILIRUBIN,TOTAL 0.5 mg/dL (0.2-1)
[2023-10-05] MEDS: NICOTINE POLACRILEX 4 MG GUM BUC PRN (12:27)
[2023-10-05 12:29] LABS: SGOT/AST 89 U/L (15-37); TOT PROT 6.7 g/dl (6.4-8.2)
[2023-10-05 12:31] LABS: ALK PHOS 163 U/L (45-117)
[2023-10-05 13:53] LABS: HIV INTERPRETATION NEGATIVE (NEGATIVE)
[2023-10-05 18:47] LABS: URINE APPEARANCE CLEAR; URINE BILIRUBIN NEGATIVE (NEGATIVE); URINE COLOR YELLOW; URINE GLUCOSE (UA) NEGATIVE (NEGATIVE); URINE KETONE NEGATIVE (NEGATIVE); URINE LEUK ESTERASE NEGATIVE (NEGATIVE); URINE NITRITE NEGATIVE (NEGATIVE); URINE PROTEIN NEGATIVE (NEGATIVE)
[2023-10-05] MEDS: hydrOXYzine PAMOATE 50 MG CAPSULE (FP) PO PRN (21:19)
[2023-10-06] MEDS: MAGNESIUM HYDROX 2400MG/30ML ORAL SUSPENSION 30 ML CUP PO PRN (21:17)
[2023-10-06] MEDS: MAG HYDROX/AL HYDROX/SIMETH 30 ML UNIT-DOSE CUP PO PRN (21:19)
[2023-10-07] MEDS: POLYETHYLENE GLYCOL (HEALTHYLAX) 3350 17 GM PACKET PO PRN (13:40)
[2023-10-07] MEDS: BACLOFEN 10 MG TABLET (FP) PO PRN (21:21)
[2023-10-10] MEDS: LACTULOSE 20 GM/30 ML UDC (FOR ORAL USE ONLY) PO SCH (10:40)
[2023-10-22] MEDS: BENZOCAINE/MENTHOL (CHLORASEPTIC ) LOZENGE MM PRN (17:32)
[2023-10-23] MEDS: guaiFENesin 200 MG/10 ML 10 ML UNIT-DOSE CUPS PO PRN (01:30)
[2023-10-23] MEDS: IBUPROFEN 400 MG TABLET (FP) PO PRN (01:30)
[2023-10-23] MEDS: IBUPROFEN 600 MG TABLET (FP) PO PRN (17:41)
[2023-10-25] MEDS ORDERED: guaiFENesin/D-METHORPHAN HB 10 ML UNIT-DOSE CUPS PO PRN (13:04)
[2023-10-25] MEDS: BENZONATATE 200 MG CAPSULE PO PRN (21:52)
[2023-10-31 10:50] VITALS: RESP 18
[2023-11-01 11:06] VITALS: BP 116/67; PULSE 74; TEMP 98.2
== END 2023-11-01 13:05 | disposition home or self-care (01) | DRG 772 ==
LOC: YASAS 09:32 → Y5N 12:49
PROVIDERS: ADMIT Allergy & Immunology; ATTEND Psychiatry & Neurology Pain Medicine
PROC: HZ42ZZZ Group Counseling for Substance Abuse Treatment, Cognitive-Behavioral (ICD-10-PCS; principal; 2023-10-04)
DX: F10.20 Alcohol dependence, uncomplicated (principal); F14.10 Cocaine abuse, uncomplicated; F17.210 Nicotine dependence, cigarettes, uncomplicated; F19.982 Other psychoactive substance use, unspecified with psychoactive substance-induced sleep disorder; I10 Essential (primary) hypertension; E72.20 Disorder of urea cycle metabolism, unspecified; B18.1 Chronic viral hepatitis B without delta-agent; M54.30 Sciatica, unspecified side; U07.1 COVID-19; J44.9 Chronic obstructive pulmonary disease, unspecified; I45.81 Long QT syndrome; Z86.11 Personal history of tuberculosis
CPT/HCPCS: 0241U-QW; 36415; 80053; 80305; 80307; 81003; 82140; 85027; 86704; 86706; 86780; 86803; 87389; 87517; 87811; J0475